=== PATIENT | female | born 1965 | race American Indian/Alaskan Native ===

== ENCOUNTER 2019-10-31 15:44 | Emergency (ER) | payer BC ==
[2019-10-31] MEDS ORDERED: SODIUM CHLORIDE 0.9% 1000 ML 1,000 ML IV ONE (16:33)
[2019-10-31] MEDS ORDERED: ONDANSETRON 4 MG/2 ML INJ IV ONE (16:35)
--- NOTE | 2019-10-31 16:39 | Emergency Department Report ---
ED Shortness of Breath HPI - General Chief Complaint: Dyspnea/Respdistress Stated Complaint: SOB/+ COVID TEST Time Seen by Provider: 10/31/19 16:15 Source: patient, EMS Mode of arrival: Stretcher Limitations: No Limitations - History of Present Illness Initial Comments: Patient is 53 years old female, healthcare worker works as a nurse. Patient presented to the ER via EMS from home complaining of shortness of breath, nausea and significantly decreased appetite. Patient also complaining of fever and chills on and off for the last few days. Patient stated that she went to [facility] yesterday and tested positive for COVID-19. Patient currently denying any chest pain, abdominal pain or diarrhea. MD Complaint: shortness of breath, cough -: days(s) (4) - Related Data Allergies Allergy/AdvReac Type Severity Reaction Status Date / Time Latex, Natural Rubber Allergy Rash Verified 10/31/19 16:55 Sulfa (Sulfonamide Allergy Anaphylaxis Verified 10/31/19 16:55 Antibiotics) ED Review of Systems ROS: Stated complaint: SOB/+ COVID TEST Other details as noted in HPI Comment: All other systems reviewed and negative Constitutional: chills, fever, malaise, weakness Respiratory: cough, shortness of breath Cardiovascular: denies: chest pain, palpitations Gastrointestinal: nausea. denies: abdominal pain, vomiting, diarrhea, constipation, hematemesis, melena, hematochezia Musculoskeletal: denies: back pain Neurological: weakness. denies: headache, numbness, paresthesias, confusion, abnormal gait Psychiatric: anxiety. denies: depression, auditory hallucinations, visual hallucinations, homicidal thoughts ED Physical Exam - General Limitations: No Limitations General appearance: alert, in no apparent distress - Head Head exam: Present: atraumatic, normocephalic, normal inspection - Eye Eye exam: Present: normal appearance - ENT ENT exam: Present: mucous membranes dry - Neck Neck exam: Present: normal inspection, full ROM. Absent: tenderness, meningism us - Respiratory Respiratory exam: Present: normal lung sounds bilaterally - Cardiovascular Cardiovascular Exam: Present: regular rate, normal rhythm, normal heart sounds - GI/Abdominal GI/Abdominal exam: Present: soft, normal bowel sounds. Absent: distended, tenderness, guarding, rebound, rigid, organomegaly, mass, bruit, pulsatile mass, hernia - Extremities Exam Extremities exam: Present: normal inspection, full ROM, normal capillary refill - Back Exam Back exam: Present: normal inspection, full ROM. Absent: CVA tenderness (R), CVA tenderness (L) - Neurological Exam Neurological exam: Present: alert, oriented X3, CN II-XII intact, normal gait, reflexes normal. 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 Patient also complaining of fever and chills on and off for the last few days. Patient stated that she went to [facility] yesterday and tested positive for COVID-19. Patient currently denying any chest pain, abdominal pain or diarrhea. Patient remained stable in the ER. Patient received normal saline and Zofran. No vomiting observed in the ER. Patient stated that she is feeling much better. Labs reviewed and is unremarkable except for a potassium of 3 for which patient received potassium chloride. Patient advised to follow-up with her primary care physician in the next 2 to 3 days and to return to the ER if she develop any new symptoms. Patient also advised to do a self quarantine. Critical care attestation.: If time is entered above; I have spent that time in minutes in the direct care of this critically ill patient, excluding procedure time. ED Disposition Clinical Impression: Hypokalemia, Shortness of breath, Nausea, COVID-19 Disposition: DC-01 TO HOME OR SELFCARE Is pt being admited?: No Condition: Stable Instructions: COVID-19, Acute Nausea and Vomiting (ED) Referrals: TRELL MEDEROS MD [Primary Care Provider] - 3-5 Days
[2019-10-31 17:27] LABS: Basophils % (Auto) 0.2 % (0.0-1.8); Eosinophils % (Auto) 0.8 % (0.0-4.3); Hematocrit 36.5 % (30.3-42.9); Hemoglobin 11.7 gm/dl (10.1-14.3); Lymphocytes # (Auto) 1.4 K/mm3 (1.2-5.4); Lymphocytes % (Auto) 28.4 % (13.4-35.0); Mean Corpuscular HGB Conc 32 % (30-34); Mean Corpuscular Volume 77 fl (79-97); Monocytes # (Auto) 0.6 K/mm3 (0.0-0.8); Monocytes % (Auto) 12.9 % (0.0-7.3); Platelet Count 298 K/mm3 (140-440); Red Blood Count 4.73 M/mm3 (3.65-5.03); Red Cell Distribution Width 14.8 % (13.2-15.2)
[2019-10-31 17:34] LABS: INR 1.34 (0.87-1.13); Partial Thromboplastin Time 25.2 Sec. (24.2-36.6)
[2019-10-31 17:37] LABS: BUN/Creatinine Ratio 12; Blood Urea Nitrogen 11 mg/dL (7-17); Calcium 8.9 mg/dL (8.4-10.2); Hemolysis Index 2
[2019-10-31 17:39] LABS: C-Reactive Protein 1.5 mg/dL (0.00-1.30)
[2019-10-31] MEDS: POTASSIUM CHLORIDE 10 MEQ 10 MEQ/100 ML BAG IV SCH ×2 (19:50→21:05)
[2019-10-31 20:25] LABS: Bacteria,Urine 1+ /HPF (Negative); Bilirubin,Urine NEG (Negative); Blood,Urine NEG (Negative); Color,Urine Yellow (Yellow); Mucus,Urine FEW /HPF; Protein,Urine <15 mg/dL mg/dL (Negative)
[2019-10-31 21:35] VITALS: BP 129/81
== END 2019-10-31 22:00 | disposition home or self-care (01) ==
LOC: ED 15:44
DX: U07.1 COVID-19 (principal); R06.02 Shortness of breath; R11.0 Nausea; E87.6 Hypokalemia; I10 Essential (primary) hypertension; J45.909 Unspecified asthma, uncomplicated; Z88.2 Allergy status to sulfonamides; Z91.040 Latex allergy status; Z88.8 Allergy status to other drugs, medicaments and biological substances
CPT/HCPCS: 36415; 71045; 80048; 81001; 82140; 82728; 82947; 83615; 84145; 85025; 85379; 85610; 85730; 86140; 87040; 96365; 96366; 96375; 99284; J2405; J3480; J7030